=== PATIENT | male | born 1955 | race Caucasian/White ===

== ENCOUNTER 2022-09-16 08:51 | Outpatient (CLI) | payer MEDICARE | END 2022-09-16 08:52 | disposition home or self-care (01) | LOC: CSHWCC 08:51 | PROVIDERS: ATTEND Nurse Practitioner Family | DX: N30.41 Irradiation cystitis with hematuria (principal) | CPT/HCPCS: 97139; G0463; 99204 ==

== ENCOUNTER 2022-10-23 11:19 | Outpatient (CLI) | payer MEDICARE | END 2022-10-23 11:20 | disposition home or self-care (01) | LOC: CSHRAD 11:19 | PROVIDERS: ATTEND Nurse Practitioner Family | DX: Z01.818 Encounter for other preprocedural examination (principal); Z92.3 Personal history of irradiation | CPT/HCPCS: 71046 ==

== ENCOUNTER 2022-11-02 08:09 | Outpatient (CLI) | payer OTHER | END 2022-11-02 08:10 | disposition home or self-care (01) | LOC: CSHWCC 08:09 | PROVIDERS: ATTEND Nurse Practitioner Family | DX: N30.41 Irradiation cystitis with hematuria (principal); I10 Essential (primary) hypertension | CPT/HCPCS: G0277 ==

== ENCOUNTER 2022-11-03 08:06 | Outpatient (CLI) | payer OTHER | END 2022-11-03 08:07 | disposition home or self-care (01) | LOC: CSHWCC 08:06 | PROVIDERS: ATTEND Nurse Practitioner Family | DX: N30.41 Irradiation cystitis with hematuria (principal) | CPT/HCPCS: G0277 ==

== ENCOUNTER 2022-11-05 08:20 | Outpatient (CLI) | payer MEDICARE | END 2022-11-05 08:21 | disposition home or self-care (01) | LOC: CSHWCC 08:20 | PROVIDERS: ATTEND Nurse Practitioner Family | DX: N30.41 Irradiation cystitis with hematuria (principal) ==

== ENCOUNTER 2022-11-06 08:03 | Outpatient (CLI) | payer MEDICARE | END 2022-11-06 08:04 | disposition home or self-care (01) | LOC: CSHWCC 08:03 | PROVIDERS: ATTEND Nurse Practitioner Family | DX: N30.41 Irradiation cystitis with hematuria (principal) | CPT/HCPCS: G0277 ==

== ENCOUNTER 2022-11-09 08:25 | Outpatient (CLI) | payer MEDICARE | END 2022-11-09 08:26 | disposition home or self-care (01) | LOC: CSHWCC 08:25 | PROVIDERS: ATTEND Nurse Practitioner Family | DX: N30.40 Irradiation cystitis without hematuria (principal) ==

== ENCOUNTER 2022-11-10 08:13 | Outpatient (CLI) | payer OTHER | END 2022-11-10 08:14 | disposition home or self-care (01) | LOC: CSHWCC 08:13 | PROVIDERS: ATTEND Nurse Practitioner Family | DX: N30.41 Irradiation cystitis with hematuria (principal); I10 Essential (primary) hypertension ==

== ENCOUNTER 2022-11-11 08:09 | Outpatient (CLI) | payer MEDICARE | END 2022-11-11 08:10 | disposition home or self-care (01) | LOC: CSHWCC 08:09 | PROVIDERS: ATTEND Nurse Practitioner Family | DX: N30.41 Irradiation cystitis with hematuria (principal); I10 Essential (primary) hypertension ==

== ENCOUNTER 2022-12-17 02:40 | Emergency (ER) | payer MEDICARE, OTHER ==
[2022-12-17] MEDS ORDERED: Ondansetron PF 4 MG/2 ML Vial ONE (03:17)
[2022-12-17] MEDS ORDERED: Vancomycin 1 GM VIAL ONE (03:18)
[2022-12-17] MEDS ORDERED: cefTRIAXone\\ROCEPHIN 2 GM VIAL ONE (03:18)
[2022-12-17] MEDS ORDERED: Morphine 2 MG/ML VIAL ONE (03:18)
[2022-12-17 03:26] LABS: #Basophils 0.1 10x3/uL (0.0-0.2); #Eosinphils 0.1 10x3/uL (0.0-0.5); #Monocytes 0.8 10x3/uL (0.0-1.1); #Neutrophils 13.1 10x3/uL (1.5-8.4); %Basophils 0.7 % (0.0-2.0); %Eosinophils 0.6 % (0.0-6.0); %Lymphocytes 8.1 % (18.0-47.0); %Neutrophils 85.3 % (40.0-75.0); Mean Corpuscular HGB CONC 33.7 g/dL (32.0-36.0); Mean Corpuscular Hemoglobin 29.9 pg (27.0-33.0); Mean Corpuscular Volume 88.9 fl (81.2-95.1); Mean Platelet Volume 9.3 fl (7.4-10.4); Platelet Count 346 10x3/uL (150-450); RBC Distribution Width 13.2 % (11.5-14.5); Red Blood Cell (RBC) Count 4.68 10x6/uL (4.32-5.72); White Blood Cell (WBC) Count 15.4 10x3/uL (3.5-10.5)
[2022-12-17] MEDS ORDERED: Acetaminophen 500 MG TAB ONE (03:28)
[2022-12-17 03:40] LABS: ALT (SGPT) 18 U/L (8-55); AST (SGOT) 19 U/L (5-34); Albumin 4.2 g/dL (3.4-4.8); Alkaline Phosphatase 55 U/L (40-110); Anion Gap 16 mmol/L (10-20); BUN (Urea Nitrogen) 24 mg/dL (8.4-25.7); Bilirubin, Total 0.4 mg/dL (0.2-1.2); CK (CPK) 73 U/L (30-200); Calc. Creatinine Clearance 0 mL/min (70-130); Calcium 10.5 mg/dL (7.8-10.44); Carbon Dioxide 24 mmol/L (23-31); Chloride 103 mmol/L (98-107); Estimated GFR 50; Globulin 3.5 g/dL (2.4-3.5); Glucose 173 mg/dL (80-115); Lipase 19 U/L (8-78); Potassium 4.1 mmol/L (3.5-5.1); Protein, Total 7.7 g/dL (5.8-8.1); Sodium 139 mmol/L (136-145)
[2022-12-17 04:30] LABS: SARS-CoV-2 NAA Rapid Test Not Detected (NotDetected)
[2022-12-17] MEDS ORDERED: Ibuprofen 200 MG TAB ONE (04:52)
[2022-12-17 04:59] LABS: Bilirubin Neg (Negative); Blood, Urine 50 (Negative); Clarity Slightly Cloudy (Clear); Glucose, Urine (Dipstick) Normal (Negative); Ketone, Urine Negative (Negative); Leukocyte 100 (Negative); Nitrite Negative (Negative); Protein, Urine (Dipstick) 15 mg/dl (Neg-Trace); Specific Gravity, Urine 1.015 (1.005-1.030); Urobilinogen Normal mg/dL (Less than 2)
[2022-12-17 05:04] LABS: Bacteria/HPF 3+ HPF (None Seen); RBC/HPF 0-3 HPF (0-3); Squamous Epithelial 0-3 HPF (0-3)
[2022-12-17] MEDS ORDERED: Ondansetron PF 4 MG/2 ML Vial IVP PRN (08:03)
[2022-12-17] MEDS ORDERED: Morphine 4 MG/ML VIAL SLOW IVP PRN (13:28)
[2022-12-17] MEDS ORDERED: HYDROcodone/Acetaminophen 5/325 mg Tablet PO PRN (13:28)
[2022-12-18] MEDS ORDERED: cefTRIAXone\\ROCEPHIN 1 GM in Sodium Chloride 0.9% 100 ML IVPB SCH (03:00)
== END 2022-12-17 07:13 | disposition short-term general hospital (02) ==
LOC: CSHERS 02:40
DX: A41.9 Sepsis, unspecified organism (principal); N13.2 Hydronephrosis with renal and ureteral calculous obstruction; N39.0 Urinary tract infection, site not specified; I10 Essential (primary) hypertension; Z20.822 Contact with and (suspected) exposure to COVID-19
CPT/HCPCS: 71045; 71275; 74177; 80053; 82550; 83605; 83690; 85025; 87040; 87077; 87086; 87149 ×2; 87186; 93005; 94760; U0002; 36415; 81003; 81015; 96365; 96366; 96368; 96375; J0696; J2272; J2405; J3370

== ENCOUNTER 2024-06-27 10:03 | Outpatient (CLI) | payer OTHER | END 2024-06-27 10:04 | disposition home or self-care (01) | LOC: CSHCT 10:03 | PROVIDERS: ATTEND Urology | DX: N20.0 Calculus of kidney (principal); N20.2 Calculus of kidney with calculus of ureter; N32.9 Bladder disorder, unspecified | CPT/HCPCS: 74176 ==